=== PATIENT | female | born 1955 | race Hispanic/Latino ===

== ENCOUNTER → 2017-09-06 | Day surgery (SDC) | payer BC ==
[2017-09-05 10:43] VITALS: BMI 47.0
[~2017-09-06] MED LIST: Propofol 200 MG/20 ML VIAL ONE
--- NOTE | 2017-09-06 12:42 | OP ---
PREPROCEDURE DIAGNOSES: 1. Iron deficiency anemia. 2. Hepatomegaly with no signs of cirrhosis or abnormal liver enzymes on testing. 3. Diabetes, poorly controlled. POSTPROCEDURE DIAGNOSES: 1. 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 Biopsies obtained. 2. Normal stomach and duodenum, otherwise. 3. Normal colonoscopy except for a few diverticula. RECOMMENDATIONS: 1. Iron supplementation daily. 2. Follow up in office in 3 weeks. ANESTHESIA: TIVA. PROCEDURE IN DETAIL: After the patient was informed of the risks, benefits, possible complications of endoscopy including perforation, bleeding, reactions to medication and aspiration, informed conse nt was obtained. The patient brought to endoscopy suite where she was sedated in gradual fashion. Once he was comfortable, a bite block was placed in incisural orifice. The endoscope was advanced t hrough the esophagus, stomach and second and third portion of duodenum and slowly removed. There wa s good visualization of mucosa. There were no masses, lesions or arteriovenous malformations identi fied. There was an irregular squamocolumnar junction biopsy taken for short segment Billy's. The re were no ulcers or lesions to explain patient's anemia. Retroflexed views in the stomach were nor mal. The stomach was normal distensibility. The scope was removed. The patient was turned in the room. A rectal exam was performed which was normal. The endoscope was advanced through anal canal through the colon to cecum was identified by ileocecal valve and appendiceal orifice. Colon was blanca ewhat redundant. The prep was good. There were a few diverticula scattered around no polyps, mass lesions or AVMs were seen. Retroflexed views showed small internal hemorrhoids. Again, no sites of bleeding or causes of iron deficiency anemia found. The scope was removed. The patient tolerated the procedure well with no complications.
== END ==
LOC: SDC 06:52
PROVIDERS: ATTEND Internal Medicine Gastroenterology
PROC: 0DJD8ZZ Inspection of Lower Intestinal Tract, Via Natural or Artificial Opening Endoscopic (ICD-10-PCS; principal; 2017-09-06)
PROC: 0DB58ZX Excision of Esophagus, Via Natural or Artificial Opening Endoscopic, Diagnostic (ICD-10-PCS; principal; 2017-09-06)
DX: Z12.11 Encounter for screening for malignant neoplasm of colon (principal); K57.30 Diverticulosis of large intestine without perforation or abscess without bleeding; K22.70 Barrett's esophagus without dysplasia; R16.0 Hepatomegaly, not elsewhere classified; E11.65 Type 2 diabetes mellitus with hyperglycemia; K64.8 Other hemorrhoids; K21.9 Gastro-esophageal reflux disease without esophagitis; E78.00 Pure hypercholesterolemia, unspecified; I10 Essential (primary) hypertension; G47.30 Sleep apnea, unspecified; F32.9 Major depressive disorder, single episode, unspecified; E89.0 Postprocedural hypothyroidism; E11.9 Type 2 diabetes mellitus without complications; Z79.4 Long term (current) use of insulin; Z79.82 Long term (current) use of aspirin; Z79.899 Other long term (current) drug therapy; Z98.51 Tubal ligation status; Z90.710 Acquired absence of both cervix and uterus; Z98.890 Other specified postprocedural states; Z85.850 Personal history of malignant neoplasm of thyroid
CPT/HCPCS: 36416; 88305; 88312; 88313; 93005; 93010; J2704

== ENCOUNTER 2018-09-03 15:10 | Outpatient (CLI) | payer BC | END 2018-09-03 15:11 | disposition home or self-care (01) | LOC: BICMAMMO 15:10 | PROVIDERS: ATTEND Advanced Practice Midwife | DX: Z12.31 Encounter for screening mammogram for malignant neoplasm of breast (principal); R92.1 Mammographic calcification found on diagnostic imaging of breast; Z85.850 Personal history of malignant neoplasm of thyroid | CPT/HCPCS: 77063; 77067 ==

== ENCOUNTER 2018-10-31 10:57 | Outpatient (CLI) | payer BC ==
--- NOTE | 2018-10-31 13:17 | RAD ---
CHEST TWO VIEWS: 10/31/2018 COMPARISON: 10/09/2012 FINDINGS: Two views of the chest demonstrate some mild pulmonary vascular congestion. No evidence of effusions , pneumonia, or pneumothorax is seen. IMPRESSION: Mild pulmonary vascular congestion. Otherwise, unremarkable two views chest. POS: C
== END 2018-10-31 10:58 | disposition home or self-care (01) ==
LOC: BICRAD 10:57
PROVIDERS: ATTEND Family Medicine
DX: R07.9 Chest pain, unspecified (principal); R10.9 Unspecified abdominal pain; R09.89 Other specified symptoms and signs involving the circulatory and respiratory systems
CPT/HCPCS: 36415; 71046; 80053; 80061; 81001; 83036; 85025

== ENCOUNTER 2019-02-12 12:08 | Day surgery (SDC) | payer BC ==
[2019-02-11 16:50] VITALS: BMI 47.0
[~2019-02-12 12:08] MED LIST changes: +Bupivacaine 0.75% 10 ML AMP ONE; +CEFAZOLIN 1 GM VIAL ONE; +EPINEPHrine 0.3 MG, Dextrose 50% 3 ML in Ophthalmic Irrigation Solution 500 ML FS SCH; +Fentanyl 100 MCG/2 ML VIAL ONE; +Lidocaine 1% PF 5 ML VIAL ONE; +Lidocaine 4% PF 5 ML AMP ONE; +Maxitrol 0.1% Opth Oint 3.5 GM TUBE ONE; +Midazolam HCl 2 mg/2 ml Vial ONE; +PROPOFOL 200 MG/20 ML VIAL ONE; -Propofol 200 MG/20 ML VIAL ONE; +Triamcinolone 40 MG/ML VIAL ONE
[2019-02-12] MEDS ORDERED: Cyclopentolate 1% Opth Drop 2 ML BOT ONE (12:42)
[2019-02-12] MEDS ORDERED: Phenylephrine 2.5% Ophth Soln 5 ML BOT ONE (12:42)
--- NOTE | 2019-02-12 19:16 | OP ---
DATE OF PROCEDURE: 02/12/2019 PREOPERATIVE DIAGNOSES: Epiretinal membrane, vitreous hemorrhage, right eye. POSTOPERATIVE DIAGNOSES: Epiretinal membrane, vitreous hemorrhage, right eye. PROCEDURES PERFORMED: Pars plana vitrectomy, membrane peel, and panretinal photocoagulation, right eye. ANESTHESIA: Local with monitored anesthesia care. DESCRIPTION OF PROCEDURE: The patient was identified in the preoperative holding area. Appropriate informed consent for the planned surgical procedure on the right eye had been obtained. The patient was transported to the operative suite, where appropriate cardiopulmonary monitoring established. Local anesthesia obtained using retrobulbar modified Van Lint lid block using 50:50 mixture of 4% lidocaine and 0.75% bupivacaine. The patient was prepped and draped in usual sterile manner for ophthalmic surgery on the on the right eye. A lid speculum was placed in the right eye. A 25-gauge trocar was placed through the conjunctivae and sclera superotemporally, inferotemporally, and superonasally. Infusion line was placed inferotemporally. Light pipe vitreous cutter inserted into the eye. Core vitrectomy was performed. The vitreous was peeled from the retinal surface 360 degrees. Tractional membranes were peeled from the retina and and peeled successfully without development of holes or tears. Panretinal photocoagulation was placed areas of the retina. No further hemorrhaging was noted. Trocars removed and eye was noted to retain pressure well. Retrobulbar Kenalog and subconjunctival Ancef were placed. Antibiotic ointment was placed and the eye was patched and shielded. The patient was taken to the postoperative recovery unit in good condition, having suffered no immediate perioperative complications. The patient was instructed to keep patch and shield on, avoid lifting or bending. Followup appointment with Dr. Cardozo. Job ID: [id number]
== END 2019-02-12 15:05 | disposition home or self-care (01) ==
LOC: SDC 12:08
PROVIDERS: ATTEND Ophthalmology Retina Specialist
DX: H43.11 Vitreous hemorrhage, right eye (principal); H35.371 Puckering of macula, right eye; Z79.82 Long term (current) use of aspirin; Z79.84 Long term (current) use of oral hypoglycemic drugs; Z79.899 Other long term (current) drug therapy
CPT/HCPCS: 36416; J0171; J2250; J3010

== ENCOUNTER 2019-06-18 08:22 | Day surgery (SDC) | payer MEDICARE, BC ==
[2019-06-17 08:55] VITALS: BMI 48.1
--- NOTE | 2019-06-18 17:17 | OP ---
DATE OF PROCEDURE: 06/18/2019 PREPROCEDURE DIAGNOSIS: History of Billy esophagus. 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 No evidence of nodules, ulcers or lesions. Random biopsies obtained. RECOMMENDATIONS: 1. Continue PPI therapy. As she has some breakthrough, I have told her that she can go to b.i.d. Protonix. I have recommended weight loss. 2. Repeat EGD in 3 years depending on pathology. ANESTHESIA: TIVA. PROCEDURE IN DETAIL: The patient was informed of the risks, benefits, and possible complications of endoscopy including perforation, reaction to medication, and aspiration. Informed consent was obtained. The patient was brought to endoscopy suite, where a bite block was placed inside her orifice. The esophagus, stomach, and second and third portions of the duodenum were fully evaluated. The duodenum was normal. The stomach was notable for some mild gastritis. It was biopsied in the past, so it was not re-biopsied. There was no evidence of erosions or bleeding. Retroflexed views were normal with no significant masses. The GE junction was notable for some scattered islands of salmon pink mucosa consistent with Billy esophagus at the GE junction. There were no nodules, ulcers, or masses. Evaluation with HIDA scan showed no severely abnormal mucosa. Multiple random biopsies were taken from the GE junction and submitted to Pathology. The scope was removed. The patient tolerated the procedure well. There were no complications. Job ID: [id number]
== END 2019-06-18 11:48 | disposition home or self-care (01) ==
LOC: SDC 08:22
PROVIDERS: ATTEND Internal Medicine Gastroenterology
PROC: 0DB58ZX Excision of Esophagus, Via Natural or Artificial Opening Endoscopic, Diagnostic (ICD-10-PCS; principal; 2019-06-18)
DX: K22.70 Barrett's esophagus without dysplasia (principal); K29.70 Gastritis, unspecified, without bleeding
CPT/HCPCS: 36416; 88305; 88312; 88313

== ENCOUNTER 2020-05-25 22:14 | Inpatient (IN) | payer MEDICARE, BC, OTHER ==
[2020-05-25] MEDS ORDERED: Acetaminophen 500 MG TAB ONE (23:16)
[2020-05-26 01:34] VITALS: BMI 50.1
[2020-05-26] MEDS ORDERED: Ondansetron ODT 4 MG TAB SL PRN (01:49)
[2020-05-26] MEDS ORDERED: Acetaminophen 325 MG TAB PO PRN (01:49)
[2020-05-26] MEDS ORDERED: Ondansetron PF 4 MG/2 ML Vial IVP PRN (01:49)
[2020-05-26] MEDS: Sodium Chloride 0.9% 1,000 ML IV SCH ×5 (02:10→18:14)
--- NOTE | 2020-05-26 02:54 | PDOC.HHP ---
Hospitalist HPI - History of Present Illness diarrhea abdominal pain History of Present Illness: Case of an 64y/o female with pmhx of htn dm hypercholesterolemia and thyroid CA s/p thyroidectomy on thyroxine who comes to hospital transfer from [facility] due to sepsis. patient refers she was on her usual state of health until until 2 -3 days ago when she started with diarrhea abdominal pain chills nausea and vomiting. she states her symptoms continued to get worse for which she seek medical assistance. At the ED she was diagnosed with sepsis of unknow origin and transfer to this institution for further evaluation and management. associated with the aboves symptoms pt also complained of some sob. patient with recent exposure to covid from a family member, tested at [facility] and here both negative for covid. patient describes diarrhea as very liquid non bloody no melena 3-5 episodes a day with associated vomiting. patient refers she beleives symptoms started after eating some grapes which is out of the ordinary for her Hospitalist ROS - Review of Systems All other systems reviewed; all pertinent +/- noted in HPI/Subj - Medication Medications: Active Medications Generic Name Dose Route Start Last Admin Trade Name Freq PRN Reason Stop Dose Admin Sodium Chloride 1,000 mls @ 125 mls/hr 05/26/20 01:49 05/26/20 02:10 Normal Saline 0.9% IV 05/26/20 11:16 1,000 mls .Q8H EKLVIN Administration Sodium Chloride 10 ml 05/26/20 01:49 05/26/20 02:10 Flush - Normal Saline IVF 05/26/20 11:16 10 ml PRN PRN Administration Saline Flush Hospitalist History - Past Medical History Source: patient Cardiac: reports: HTN, Hyperlipidemia Endocrine: reports: Diabetes, Hypothyroidism - Past Surgical History Past Surgical History: reports: , Hysterectomy, Tubal Ligation Other Surgical History: thyroidectomy - Family History Family History: reports: diabetes mellitus, hypertension - Social History Smoking Status: Never smoker Alcohol: reports: None Drugs: reports: none Living Situation: With Family Activity level: independent ambulation - Exam General Appearance: NAD, awake alert Eye: PERRL, anicteric sclera ENT: normocephalic atraumatic, no oropharyngeal lesions, moist mucosa Neck: supple, symmetric, no JVD, no thyromegaly Heart: RRR, no murmur, no gallops, no rubs Respiratory: CTAB, no wheezes, no rales Gastrointestinal: soft, non-distended, normal bowel sounds, tender to palpation Extremities: no cyanosis, no clubbing, no edema Skin: normal turgor, no lesions Neurological: cranial nerve grossly intact, normal sensation to touch Musculoskeletal: normal tone, normal strength, no muscle wasting Psychiatric: normal affect, normal behavior, A&O x 3 Hospitalist Results - Radiology Interpretation CT scan - abdomen Status: report reviewed by me Additional Comment: 1. thickening of distal esophagus and stomach suggestive of gastritis 2. prominence of distal transverse and descending colon suggestives of inflammation vs colitis vs obstruction 3.noduler density in LLL 8.5mm f/u chest ct 6-12months Hospitalist H&P A/P - Problem (1) Sepsis Code(s): A41.9 - SEPSIS, UNSPECIFIED ORGANISM Status: Acute (2) Colitis Code(s): K52.9 - NONINFECTIVE GASTROENTERITIS AND COLITIS, UNSPECIFIED Status : Acute (3) Diabetes Code(s): E11.9 - TYPE 2 DIABETES MELLITUS WITHOUT COMPLICATIONS Status: Acute (4) HTN (hypertension) Code(s): I10 - ESSENTIAL (PRIMARY) HYPERTENSION Status: Acute (5) Hx of thyroid cancer Code(s): Z85.850 - PERSONAL HISTORY OF MALIGNANT NEOPLASM OF THYROID Status: Acute (6) Hypercholesterolemia Code(s): E78.00 - PURE HYPERCHOLESTEROLEMIA, UNSPECIFIED Status: Acute (7) Nausea & vomiting Code(s): R11.2 - NAUSEA WITH VOMITING, UNSPECIFIED Status: Acute - Plan Plan: Case of an 64y/o female w the stated pmhx who present with sepsis likely secondary to colitis sepsis / colitis - wbc in 17k with LA of 2.[address] suggestive of colitis - sepsis bundles started on [facility], dose of vanc and zosyn given - covid negative x 2, clean u/a, no suggestion of lung infection in chest ct - f/u blood and stool cutures - will order a f/u LA and treat accordingly - continue w ivfs - will start cippro and flagyl - npo except for meds - dvt prophylaxis gastritis - ppis bid nause / vomiting - symptomatic treatment prn diabetes - pt has insulin pump htn - holding medication in seeting of sepsis hx of thyroid cancer - continue thyroxine hypercholesterolmiea -continue statin
[2020-05-26] MEDS ORDERED: Sodium Chloride 0.9% 2,000 ML IV SCH (03:30)
[2020-05-26] MEDS: metroNIDAZOLE 500 MG in Premix Bag 1 BAG IVPB SCH ×3 (04:44→19:58)
[2020-05-26 05:00] LABS: ALT (SGPT) 13 U/L (8-55); AST (SGOT) 17 U/L (5-34); Alkaline Phosphatase 59 U/L (40-110); Anion Gap 13 mmol/L (10-20); BUN (Urea Nitrogen) 22 mg/dL (9.8-20.1); Bilirubin, Total 0.3 mg/dL (0.2-1.2); Calc. Creatinine Clearance 76 mL/min (70-130); Calcium 7.8 mg/dL (7.8-10.44); Carbon Dioxide 21 mmol/L (23-31); Chloride 104 mmol/L (98-107); Estimated GFR-MDRD 36; Glucose 126 mg/dL (80-115); Potassium 4.2 mmol/L (3.5-5.1); Sodium 134 mmol/L (136-145)
[2020-05-26 05:06] LABS: Band 31 % (5-11); Eosinophils 1 % (0-10); Hemoglobin 11.2 g/dL (12.0-16.0); Lymphocytes 3 % (21-51); MDiff Complete? YES; Mean Corpuscular HGB CONC 31.9 g/dL (32.0-36.0); Mean Corpuscular Hemoglobin 24.6 pg (27.0-31.0); Mean Corpuscular Volume 77.1 fL (78.0-98.0); Mean Platelet Volume 9.1 fL (7.4-10.4); Monocytes 5 % (0-10); Neutrophil 60 % (42-75); Platelet Count 184 thou/uL (130-400); Platelet Morphology Comment Appears Adequate; RBC Distribution Width 16.1 % (11.5-14.5); Red Blood Cell (RBC) Count 4.53 mill/uL (4.20-5.40); White Blood Cell (WBC) Count 21.3 thou/uL (4.8-10.8)
[2020-05-26] MEDS: Enoxaparin Sodium 40 MG/0.4 ML SYRINGE SC SCH (08:32)
[2020-05-26] MEDS: Aspirin Chewable 81 MG TAB PO SCH (08:32)
[2020-05-26] MEDS: Levothyroxine Sodium 100 MCG TAB PO SCH (08:32)
[2020-05-26] MEDS ORDERED: Rosuvastatin 10 MG TAB PO SCH (09:00)
[2020-05-26] MEDS ORDERED: Carvedilol 6.25 MG TAB PO SCH ×2 (09:00→22:45)
[2020-05-26] MEDS: Pregabalin 25 MG CAP PO SCH ×2 (13:11→19:52)
[2020-05-26] MEDS: Acetaminophen 325 MG TAB PO PRN (15:13)
[2020-05-26] MEDS ORDERED: Loperamide HCl 2 MG CAP PO SCH (19:15)
[2020-05-26] MEDS: Rosuvastatin 5 MG TAB PO SCH (22:49)
[2020-05-27] MEDS: Loperamide HCl 2 MG CAP PO PRN ×4 (00:06→20:53)
[2020-05-27] MEDS: metroNIDAZOLE 500 MG in Premix Bag 1 BAG IVPB SCH ×2 (04:49→11:34)
[2020-05-27 06:01] LABS: Anion Gap 12 mmol/L (10-20); BUN (Urea Nitrogen) 23 mg/dL (9.8-20.1); Calc. Creatinine Clearance 80 mL/min (70-130); Carbon Dioxide 23 mmol/L (23-31); Chloride 105 mmol/L (98-107); Estimated GFR-MDRD 38; Glucose 107 mg/dL (80-115); Potassium 4.4 mmol/L (3.5-5.1); Sodium 136 mmol/L (136-145)
[2020-05-27 06:57] LABS: Band 24 % (5-11); Hemoglobin 10.8 g/dL (12.0-16.0); Lymphocytes 8 % (21-51); MDiff Complete? YES; Mean Corpuscular HGB CONC 31.5 g/dL (32.0-36.0); Mean Corpuscular Hemoglobin 24.4 pg (27.0-31.0); Mean Corpuscular Volume 77.5 fL (78.0-98.0); Mean Platelet Volume 9.8 fL (7.4-10.4); Monocytes 2 % (0-10); Neutrophil 66 % (42-75); Platelet Count 183 thou/uL (130-400); RBC Distribution Width 16.4 % (11.5-14.5); Red Blood Cell (RBC) Count 4.43 mill/uL (4.20-5.40)
[2020-05-27] MEDS: Levothyroxine Sodium 100 MCG TAB PO SCH (08:40)
[2020-05-27] MEDS: Aspirin Chewable 81 MG TAB PO SCH (08:40)
[2020-05-27] MEDS: Sodium Chloride 0.9% 1,000 ML IV SCH (08:41)
[2020-05-27] MEDS: Carvedilol 6.25 MG TAB PO SCH ×2 (08:41→17:33)
[2020-05-27] MEDS: Enoxaparin Sodium 40 MG/0.4 ML SYRINGE SC SCH (08:41)
[2020-05-27] MEDS: Acetaminophen 325 MG TAB PO PRN ×2 (08:55→20:53)
--- NOTE | 2020-05-27 16:04 | PDOC.HOSPP ---
- Subjective Encounter Date: 05/27/20 Encounter Time: 10:30 Subjective: Pt seen for followup re: sepsis. Feels slightly better. Continues to have diarrhea. - Objective Vital Signs & Weight: Vital Signs (12 hours) Temp Pulse Resp BP BP Pulse Ox 05/27/20 08:41 159/77 H 05/27/20 08:00 95 05/27/20 07:36 98.5 F 81 20 159/77 H 95 05/27/20 04:26 98.5 F 79 17 139/72 99 Weight Weight 273 lb 11.2 oz I&O: 05/26/20 05/27/20 05/28/20 06:59 06:59 06:59 Intake Total 2300 1680 Balance 2300 1680 Result Diagrams: 05/27/20 05:23 05/27/20 05:23 Additional Labs: Accuchecks 05/27/20 05/27/20 05/27/20 11:39 04:29 00:03 POC Glucose 85 124 H 200 H 05/26/20 05/26/20 05/26/20 22:42 20:07 16:20 POC Glucose 60 L 158 H 249 H Labs and MARs reviewed by ny Hospitalist ROS - Review of Systems Cardiovascular: denies: chest pain, palpitations, orthopnea, paroxysmal noc. dyspnea, edema, light headedness Gastrointestinal: reports: diarrhea. denies: nausea, vomiting, abdominal pain, constipation, melena, hematochezia Genitourinary: denies: dysuria, frequency, incontinence, hematuria, retention - Medication Medications: Active Medications Generic Name Dose Route Start Last Admin Trade Name Freq PRN Reason Stop Dose Admin Acetaminophen 650 mg 05/26/20 14:33 05/27/20 08:55 Tylenol PO 650 mg Q6H PRN Administration Headache/Fever or Pain Aspirin 81 mg 05/26/20 09:00 05/27/20 08:40 Aspirin Chewable PO 81 mg QAM KELVIN Administration Carvedilol 12.5 mg 05/27/20 08:00 05/27/20 08:41 Coreg PO 12.5 mg BID-WM KELVIN Administration Enoxaparin Sodium 40 mg 05/26/20 09:00 05/27/20 08:41 Lovenox SC 40 mg 0900 KELVIN Administration Ciprofloxacin/Dextrose 400 mg/ 200 mls @ 200 mls/hr 05/26/20 09:00 05/27/20 08:39 Device IVPB 200 mls Q12HR KELVIN Administration Metronidazole 500 mg/ Device 100 mls @ 100 mls/hr 05/26/20 04:00 05/27/20 11: 34 IVPB 100 mls 0400,1200,2000 KELVIN Administration Sodium Chloride 1,000 mls @ 100 mls/hr 05/26/20 02:45 05/27/20 08:41 Normal Saline 0.9% IV 1,000 mls .Q10H KELVIN Administration Levothyroxine Sodium 300 mcg 05/26/20 09:00 05/27/20 08:40 Synthroid PO 300 mcg QAM KELVIN Administration Loperamide HCl 2 mg 05/26/20 19:04 05/27/20 08:40 Imodium PO 2 mg PRN PRN Administration Diarrhea/Loose Stools Pantoprazole Sodium 40 mg 05/26/20 09:00 05/27/20 08:40 Protonix PO 40 mg DAILY KELVIN Administration Rosuvastatin Calcium 5 mg 05/26/20 21:00 05/26/20 22:49 Crestor PO Not Given HS KELVIN Sertraline HCl 250 mg 05/26/20 21:00 05/26/20 22:50 Zoloft PO 250 mg HS KELVIN Administration - Exam General - other findings: Morbid obesity Eye: anicteric sclera ENT: moist mucosa Neck: supple, no thyromegaly Heart: RRR, no rubs Respiratory: CTAB Gastrointestinal: soft, non-tender, normal bowel sounds Extremities: no cyanosis Psychiatric: normal affect, normal behavior Hosp A/P - Plan - Assessment (1) Sepsis Code(s): A41.9 - SEPSIS, UNSPECIFIED ORGANISM Status: Acute (2) Colitis Code(s): K52.9 - NONINFECTIVE GASTROENTERITIS AND COLITIS, UNSPECIFIED Status : Acute (3) HTN (hypertension) Code(s): I10 - ESSENTIAL (PRIMARY) HYPERTENSION Status: Acute (3) Diabetes Code(s): E11.9 - TYPE 2 DIABETES MELLITUS WITHOUT COMPLICATIONS Status: Acute (4) Hypercholesterolemia Code(s): E78.00 - PURE HYPERCHOLESTEROLEMIA, UNSPECIFIED Status: Acute (5) Hx of thyroid cancer Code(s): Z85.850 - PERSONAL HISTORY OF MALIGNANT NEOPLASM OF THYROID Status: Acute (6) Morbid obesity Status: Chronic (7) Nausea & vomiting Code(s): R11.2 - NAUSEA WITH VOMITING, UNSPECIFIED Status: Resolved - Plan sepsis / colitis: - WBC improving, bandemia still present - Stool C. diff, shiga negative - continue IV fluids - continue cippro and flagyl - clear fluid diet, advance as tolerated DM2: - pt has insulin pump -continue accuchecks and insulin slidign scale htn: -resume losartan hx of thyroid cancer: - TSH high, check free T4 hypercholesterolimea -pt is on statin CKD Stage 3: -follow GFR (resuming losartan)
[2020-05-27] MEDS ORDERED: Labetalol HCl 100 MG/20 ML VIAL SLOW IVP PRN (19:19)
[2020-05-27] MEDS ORDERED: Labetalol HCl 100 MG/20 ML VIAL SLOW IVP SCH (19:30)
--- NOTE | 2020-05-27 19:48 | CON ---
DATE OF CONSULTATION: 05/27/2020 REASON FOR CONSULTATION: Gastroenteritis. HISTORY OF PRESENT ILLNESS: Ms. Gonzalez states that she became ill on Saturday afternoon, after waking up in the morning not feeling great and began to have cramps and diarrhea. She had no bleeding. She had no nausea or vomiting. She had several loose stools and cramps and ultimately began to even feel worse and came to the emergency room. She was admitted early in the morning yesterday around 2:00. In the ER, she was diagnosed with "sepsis" and admitted to the hospital. She has had no melena, hematochezia, or hematemesis. She states she is actually feeling better today. Her is now ill with similar symptoms at home. They ate breakfast the morning she got sick, some eggs and spam and other vegetables. Apparently, the eggs were sitting in a baggie for about 3 days in her refrigerator before she cooked them. PAST MEDICAL HISTORY: 1. Billy esophagus. Last EGD by me on 06/18/2019, with no dysplasia. Last colonoscopy was in 08/2017, normal except for diverticulosis coli. 2. Poorly controlled diabetes. 3. History of fatty liver. 4. Hyperlipidemia, hypertension, sleep apnea, anxiety, prior history of thyroid cancer disease. PAST SURGICAL HISTORY: Cholecystectomy and reflux. , hysterectomy, tubal ligation. ALLERGIES: NONE KNOWN. REVIEW OF SYSTEMS: Negative for arthralgias, myalgias, chest pain, shortness of breath, or dyspnea on exertion. FAMILY HISTORY: Diabetes and hypertension. SOCIAL HISTORY: She does not smoke, drink, or use drugs. MEDICATIONS: At home; 1. Metformin. 2. Sertraline. 3. Crestor. 4. Losartan. 5. Synthroid. 6. Insulin. 7. Furosemide. 8. Nexium. 9. Jardiance. 10. Carvedilol. 11. Aspirin. Medications here; 1. Aspirin. 2. Carvedilol. 3. Cipro. 4. Lovenox. 5. Levothyroxine. 6. Loperamide. 7. Cozaar. 8. Flagyl. 9. Protonix. 10. Sertraline. 11. Normal saline 100. PHYSICAL EXAMINATION: VITAL SIGNS: Temperature is 98, T-max is 100.3, blood pressure 159/70. GENERAL: She is resting in bed. She is a little bit overweight. She is in no distress. HEENT: Oropharynx is moist. NECK: Supple. LUNGS: Clear. HEART: Regular rate and rhythm without clicks or murmurs. ABDOMEN: Soft, protuberant. There is significant pannus. It is nontender. There is no rebound. There is no guarding. EXTREMITIES: No clubbing, cyanosis, or edema. SKIN: Reveals no rashes or erythema. LABORATORY DATA: White count down from 21,000 yesterday to 13 today, MCV 77, hemoglobin 10.8, platelet count 183. INR is 1.2. Sodium 136, potassium 4.4. BUN and creatinine are 23 and 1.38, 22 and 1.45 on admission. Liver function tests were normal on admission. Microbiology; stool lactoferrin positive, Campylobacter negative, shiga toxin was negative, culture pending, clostridium difficile negative. Blood cultures, there was one culture with gram variable rods on the 1st. Negative urine culture. Negative blood cultures on the 2nd. Negative COVID test. There was a CAT scan from [facility], reportedly showed thickening of the distal esophagus and stomach, suggestive of gastritis, distal transverse, descending colitis. ASSESSMENT: Acute gastroenteritis. RECOMMENDATIONS: 1. Await final cultures. 2. Complete three or four days of antibiotics. If she continues to improve and she is able to remain hydrated and take p.o. and her cultures are negative, she can probably go home tomorrow. We will follow along with you. Job ID: [id number]
[2020-05-27] MEDS: Rosuvastatin 5 MG TAB PO SCH (22:28)
[2020-05-28] MEDS: Sodium Chloride 0.9% 1,000 ML IV SCH ×2 (02:23→05:47)
[2020-05-28] MEDS: metroNIDAZOLE 500 MG in Premix Bag 1 BAG IVPB SCH ×2 (02:25→05:47)
[2020-05-28 03:38] LABS: #Eosinphils 0.1 thou/uL (0.0-0.7); #Lymphocytes 1.5 thou/uL (1.20-3.40); #Monocytes 0.9 thou/uL (0.11-0.59); #Neutrophils 10.1 thou/uL (1.40-6.50); %Basophils 0.2 % (0.0-1.0); %Lymphocytes 12.1 % (21.0-51.0); %Monocytes 7.1 % (0.0-10.0); %Neutrophils 79.5 % (42.0-75.0); Hemoglobin 12.2 g/dL (12.0-16.0); Mean Corpuscular HGB CONC 31.6 g/dL (32.0-36.0); Mean Corpuscular Hemoglobin 24.6 pg (27.0-31.0); Mean Corpuscular Volume 77.7 fL (78.0-98.0); Mean Platelet Volume 8.8 fL (7.4-10.4); Platelet Count 175 thou/uL (130-400); RBC Distribution Width 16.2 % (11.5-14.5); Red Blood Cell (RBC) Count 4.95 mill/uL (4.20-5.40); White Blood Cell (WBC) Count 12.7 thou/uL (4.8-10.8)
[2020-05-28 03:47] LABS: Anion Gap 13 mmol/L (10-20); BUN (Urea Nitrogen) 15 mg/dL (9.8-20.1); Calc. Creatinine Clearance 102 mL/min (70-130); Calcium 8.6 mg/dL (7.8-10.44); Carbon Dioxide 19 mmol/L (23-31); Chloride 107 mmol/L (98-107); Estimated GFR-MDRD 51; Glucose 112 mg/dL (80-115); Potassium 4.1 mmol/L (3.5-5.1); Sodium 135 mmol/L (136-145)
[2020-05-28] MEDS ORDERED: Electrolyte Replacement Protoc 1 EACH EACH FS PRN (08:00)
[2020-05-28] MEDS: Levothyroxine Sodium 100 MCG TAB PO SCH (08:05)
[2020-05-28] MEDS: Carvedilol 6.25 MG TAB PO SCH (08:06)
[2020-05-28] MEDS: Aspirin Chewable 81 MG TAB PO SCH (08:06)
[2020-05-28] MEDS ORDERED: Losartan 25 MG TAB PO SCH ×2 (09:00)
[2020-05-28] MEDS ORDERED: Empagliflozin 25 MG TAB PO SCH (09:00)
[2020-05-28 12:35] VITALS: BP 144/68; TEMP 98.5
[2020-05-28] MEDS: Loperamide HCl 2 MG CAP PO PRN (14:22)
--- NOTE | 2020-05-28 17:33 | PRG ---
DATE OF SERVICE: 05/28/2020 SUBJECTIVE: Ms. Gonzalez was moved to telemetry last night as there was concern for some hypertension or atrial fibrillation. When she got here, she was in normal sinus rhythm. She has done fine. Her diarrhea has slowed markedly. She has no more lower abdominal pain. OBJECTIVE: VITAL SIGNS: Her blood pressure is 144/68, temperature is 98.5, pulse 77. ABDOMEN: Soft, nontender. LABORATORY DATA: White count 34557 down from 21,000 on admission, hemoglobin 12.7, MCV 77, platelet count 175, 79 segs, no bands on today's differential. Sodium 135, potassium 4, BUN and creatinine are 15 and 1.08 down from 23 and 1.45. Stool ultimately showed white blood cells, but cultures and stool antigens were nondiagnostic. ASSESSMENT: Acute diarrheal illness, likely either a viral or bacterial gastroenteritis. Doing much better now. I agree with plans for discharge. I think she has had 3 days of antibiotics, needs no further antibiotics. I have recommended a low residue modified BRAT diet with grilled chicken advance as tolerated. If she has any problems, we would be happy to see her back in the office. Otherwise, she will follow up on an as-needed basis. Job ID: [id number]
--- NOTE | 2020-05-29 02:32 | DIS ---
DATE OF ADMISSION: 05/25/2020 DATE OF DISCHARGE: 05/28/2020 HOSPITAL COURSE: Ms. Gonzalez is a 64-year-old female with medical history of hypertension, type 2 diabetes, and thyroid cancer, status post thyroidectomy, on thyroxine, who came to the hospital for abdominal pain, nausea, vomiting, and diarrhea for 3 days. She was diagnosed with acute gastroenteritis. Her symptoms resolved after supportive treatment and on the day of discharge, she was hemodynamically stable with no additional episodes of diarrhea, nausea, or vomiting. In addition to that, the patient was noted to be on a very high dose of levothyroxine 300 mcg, which is greater than her recommended dosage based on her weight. It is unknown if the patient takes the levothyroxine as she should early in the morning before taking anything else. The patient was educated regarding levothyroxine dosage and to follow up with her primary care physician after properly taking the levothyroxine. PHYSICAL EXAMINATION: VITAL SIGNS: Blood pressure 144/68, temperature 98.5, pulse 77, respiratory rate 18, and oxygen saturation 96% on room air. GENERAL: Lying comfortably in bed. Morbidly obese. ENT: Moist mucosa. HEART: Regular rate and rhythm. No rubs, murmurs. LUNGS: Clear to auscultation bilaterally. No wheezing, rales, or rhonchi. GI: Soft, nontender, and nondistended. Normal bowel sounds. EXTREMITIES: No cyanosis. PSYCHIATRIC: Proper mood and affect. Alert and oriented x3. MEDICATION LIST: New medications: No new medications. Modified medications: Lasix was changed from 20 mg daily to 20 mg p.r.n. edema. Old medications: 1. Aspirin. 2. Coreg. 3. Jardiance. 4. Levothyroxine 300 mcg daily. 5. Losartan. 6. Sertraline. 7. Aspirin. 8. Nexium. 9. Humalog 50/50 mix. 10. Metformin. 11. Rosuvastatin. Job ID: [id number]
--- NOTE | 2020-05-30 14:26 | EKG ---
Test Reason : STAT Blood Pressure : / mmHG Vent. Rate : 118 BPM Atrial Rate : 102 BPM P-R Int : 000 ms QRS Dur : 078 ms QT Int : 280 ms P-R-T Axes : 000 016 014 degrees QTc Int : 392 ms Atrial fibrillation with rapid ventricular response Low voltage QRS Abnormal ECG No previous ECGs available Confirmed by ZACK REYES (2) on 05/30/2020 2:26:21 PM Referred By: Krish Confirmed By:ZACK REYES
== END 2020-05-28 16:48 | disposition home or self-care (01) | DRG 872 ==
LOC: ERS 22:14 → T4-B 23:23 → 2NO 05-27 21:51
PROVIDERS: ADMIT Internal Medicine; ATTEND Internal Medicine
DX: A41.89 Other specified sepsis (principal); Z68.43 Body mass index [BMI] 50.0-59.9, adult; A08.8 Other specified intestinal infections; Z20.828 Contact with and (suspected) exposure to other viral communicable diseases; E66.01 Morbid (severe) obesity due to excess calories; E78.5 Hyperlipidemia, unspecified; E78.00 Pure hypercholesterolemia, unspecified; K29.70 Gastritis, unspecified, without bleeding; I12.9 Hypertensive chronic kidney disease with stage 1 through stage 4 chronic kidney disease, or unspecified chronic kidney disease; E11.22 Type 2 diabetes mellitus with diabetic chronic kidney disease; N18.3 Chronic kidney disease, stage 3 (moderate); F32.9 Major depressive disorder, single episode, unspecified; E11.65 Type 2 diabetes mellitus with hyperglycemia; G47.30 Sleep apnea, unspecified; K22.70 Barrett's esophagus without dysplasia; K76.0 Fatty (change of) liver, not elsewhere classified; Z90.49 Acquired absence of other specified parts of digestive tract; Z98.51 Tubal ligation status; Z90.710 Acquired absence of both cervix and uterus; Z79.890 Hormone replacement therapy; Z79.84 Long term (current) use of oral hypoglycemic drugs; Z79.899 Other long term (current) drug therapy; Z85.850 Personal history of malignant neoplasm of thyroid
CPT/HCPCS: 36415; 36416; 80048; 80053; 83605; 83630; 84145; 84439; 84443; 85007; 85025; 85027; 87040; 87045; 87046; 87077; 87186; 87324; 87427; 87449; 93005; 93010; 99285; J0744; J1650; U0002

== ENCOUNTER 2020-11-10 11:17 | Outpatient (CLI) | payer MEDICARE, BC ==
--- NOTE | 2020-11-10 13:04 | MMO ---
Bilateral MAMMO Bilat Screen [facility]. CLINICAL HISTORY: Patient is 65 years old and is seen for screening. The patient has no family history of breast cancer. The patient has no personal history of cancer. VIEWS: The views performed were: bilateral craniocaudal with tomosynthesis and bilateral mediolateral oblique with tomosynthesis. FILMS COMPARED: The present examination has been compared to prior imaging studies performed at [facility] on 06/01/2013, 02/22/2016 and 09/03/2018, and at [facility] on 03/27/2010. This study has been interpreted with the assistance of computer-aided detection. MAMMOGRAM FINDINGS: There are scattered fibroglandular densities. There are stable benign appearing calcifications seen in both breasts. There are also vascular calcifications. There are no suspicious masses, suspicious calcifications, or new areas of architectural distortion. IMPRESSION: THERE IS NO MAMMOGRAPHIC EVIDENCE OF MALIGNANCY. A ROUTINE FOLLOW-UP MAMMOGRAM IN 1 YEAR IS RECOMMENDED. THE RESULTS OF THIS EXAM WERE SENT TO THE PATIENT. ACR BI-RADS Category 2 - Benign finding MAMMOGRAPHY NOTE: 1. A negative mammogram report should not delay a biopsy if a dominant of clinically suspicious mass is present. 2. Approximately 10% to 15% of breast cancers are not detected by mammography. 3. Adenosis and dense breasts may obscure an underlying neoplasm. Reported by: MELANIE MCCALLUM MD Electonically Signed: [id number]
== END 2020-11-10 11:18 | disposition home or self-care (01) ==
LOC: BICMAMMO 11:17
PROVIDERS: ATTEND Family Medicine
DX: Z12.31 Encounter for screening mammogram for malignant neoplasm of breast (principal)
CPT/HCPCS: 77063; 77067

== ENCOUNTER 2024-05-20 12:18 | Emergency (ER) | payer BC, MEDICARE, OTHER ==
[2024-05-20] MEDS ORDERED: Acetaminophen 500 MG TAB ONE (13:15)
[2024-05-20] MEDS ORDERED: Ibuprofen 200 MG TAB ONE (13:15)
[2024-05-20 14:37] LABS: Influenza A by NAA Not Detected (NotDetected); Influenza B by NAA Not Detected (NotDetected); SARS-CoV-2 NAA Rapid Test DETECTED (NotDetected)
== END 2024-05-20 15:07 | disposition home or self-care (01) ==
LOC: ERS 12:18
DX: U07.1 COVID-19 (principal); E11.9 Type 2 diabetes mellitus without complications; I10 Essential (primary) hypertension; Z79.84 Long term (current) use of oral hypoglycemic drugs; Z79.82 Long term (current) use of aspirin
CPT/HCPCS: 0240U; 71046; 99284

== ENCOUNTER 2024-10-16 18:08 | Inpatient (IN) | payer MEDICARE ==
[2024-10-16 19:00] LABS: #Basophils 0.04 10x3/uL (0.0-0.2); %Basophils 0.4 % (0.0-1.0); %Eosinophils 1.1 % (0.0-10.0); %Lymphocytes 22.9 % (21.0-51.0); %Monocytes 7.5 % (0.0-10.0); %Neutrophils 67.6 % (42.0-75.0); Hematocrit 32.8 % (36.0-47.0); Hemoglobin 10.5 g/dL (12.0-16.0); Mean Corpuscular Hemoglobin 22.9 pg (27.0-31.0); Mean Corpuscular Volume 71.6 fL (78.0-98.0); Mean Platelet Volume 9.5 fL (7.4-10.4); Platelet Count 215 10x3/uL (130-400); Red Blood Cell (RBC) Count 4.58 mill/uL (4.20-5.40)
[2024-10-16] MEDS ORDERED: Metoprolol Tartrate 5 MG (5 mL) VIAL ONE (19:04)
[2024-10-16 19:32] LABS: Troponin I 0.092 ng/mL (< 0.028)
[2024-10-16 19:36] LABS: Anisocytosis MODERATE=16-30 cells HPF (0-5); Microcytosis SLIGHT = 6-15 cells HPF (0-5); Ovalocytes SLIGHT = 2-5 cells HPF (0-1); Platelet Adequacy Comment Platelets Normal; Polychromasia SLIGHT = 2-3 cells HPF (0-2); Schistocytes SLIGHT = 2-5 cells HPF (0-1); Target Cells SLIGHT = 2-5 cells HPF (0-1)
[2024-10-16] MEDS ORDERED: Digoxin 0.5 MG/2 ML AMP ONE (19:56)
[2024-10-16 20:24] LABS: INR-International Normal Ratio 0.9; Prothrombin Time 12.5 sec (12.0-14.7)
[2024-10-16 20:28] LABS: ALT (SGPT) 18 U/L (8-55); AST (SGOT) 27 U/L (5-34); Albumin 3.5 g/dL (3.4-4.8); Alkaline Phosphatase 69 U/L (40-110); Anion Gap 16 mmol/L (10-20); BUN (Urea Nitrogen) 38 mg/dL (9.8-20.1); Bilirubin, Total 0.2 mg/dL (0.2-1.2); Calc. Creatinine Clearance 0 mL/min (70-130); Calcium 8.7 mg/dL (7.8-10.44); Carbon Dioxide 22 mmol/L (23-31); Chloride 101 mmol/L (98-107); Estimated GFR 37; Globulin 3.8 g/dL (2.4-3.5); Glucose 116 mg/dL (80-115); Lipase 50 U/L (8-78); Magnesium 1.6 mg/dL (1.6-2.6); Potassium 4.3 mmol/L (3.5-5.1); Protein, Total 7.3 g/dL (5.8-8.1); Sodium 135 mmol/L (136-145)
[2024-10-16] MEDS ORDERED: Diltiazem HCl/D5W 125 ML ONE (21:04)
[2024-10-16] MEDS ORDERED: Ondansetron PF 4 MG/2 ML Vial IVP PRN (21:36)
[2024-10-16] MEDS ORDERED: Ondansetron ODT 4 MG TAB PO PRN (21:36)
[2024-10-16] MEDS ORDERED: traMADol HCl 50 MG TAB PO PRN (21:36)
[2024-10-16] MEDS ORDERED: Dextrose 5% in Water 1,000 ML IV PRN (21:45)
[2024-10-16] MEDS ORDERED: Insulin Lispro 100 UNIT/ML 10 ML VIAL SC PRN ×2 (21:45)
[2024-10-16] MEDS ORDERED: Glucagon 1 MG/ML KIT IM PRN (21:45)
[2024-10-16] MEDS ORDERED: Dextrose 50% Abboject 50 ML SYRINGE SLOW IVP PRN (21:45)
[2024-10-16] MEDS ORDERED: Diltiazem HCl/D5W 125 MG in Premix 1 BAG IVPB SCH (21:45)
[2024-10-16 22:29] LABS: Free T4 (Free Thyroxine) 1.46 ng/dL (0.70-1.48)
[2024-10-16 22:53] LABS: Magnesium 1.6 mg/dL (1.6-2.6)
[2024-10-16 23:27] VITALS: BMI 43.4
[2024-10-16] MEDS: Acetaminophen 325 MG TAB PO PRN (23:35)
[2024-10-16 23:59] LABS: Troponin I 0.989 ng/mL (< 0.028)
[2024-10-17] MEDS: Heparin 25,000 units/D5W 500 ML IV SCH (01:14)
[2024-10-17 04:14] LABS: #Basophils 0.03 10x3/uL (0.0-0.2); %Basophils 0.3 % (0.0-1.0); %Eosinophils 1.1 % (0.0-10.0); %Lymphocytes 28.4 % (21.0-51.0); %Monocytes 7.7 % (0.0-10.0); %Neutrophils 62.2 % (42.0-75.0); Hematocrit 32.7 % (36.0-47.0); Hemoglobin 10.1 g/dL (12.0-16.0); Mean Corpuscular HGB CONC 30.9 g/dL (32.0-36.0); Mean Corpuscular Hemoglobin 22.9 pg (27.0-31.0); Mean Platelet Volume 9.6 fL (7.4-10.4); Platelet Count 199 10x3/uL (130-400); RBC Distribution Width 18.9 % (11.5-14.5); Red Blood Cell (RBC) Count 4.42 mill/uL (4.20-5.40)
[2024-10-17 04:22] LABS: ALT (SGPT) 17 U/L (8-55); AST (SGOT) 31 U/L (5-34); Albumin 3.2 g/dL (3.4-4.8); Alkaline Phosphatase 66 U/L (40-110); Anion Gap 14 mmol/L (10-20); BUN (Urea Nitrogen) 35 mg/dL (9.8-20.1); Bilirubin, Total 0.2 mg/dL (0.2-1.2); Calc. Creatinine Clearance 70 mL/min (70-130); Calcium 8.6 mg/dL (7.8-10.44); Carbon Dioxide 26 mmol/L (23-31); Chloride 101 mmol/L (98-107); Estimated GFR 45; Glucose 133 mg/dL (80-115); Potassium 4.2 mmol/L (3.5-5.1); Protein, Total 6.2 g/dL (5.8-8.1); Sodium 137 mmol/L (136-145)
[2024-10-17] MEDS: Levothyroxine Sodium 50 MCG TAB PO SCH (05:46)
[2024-10-17] MEDS: Levothyroxine Sodium 100 MCG TAB PO SCH (06:55)
[2024-10-17] MEDS: FLU (Fluad Triv) TS24-25 (65UP)/MF59C/PF 45 MCG/0.5 ML Syringe IM ONE (09:10)
[2024-10-17] MEDS: Heparin 10,000 UNITS/ 10 ML VIAL SLOW IVP SCH (09:12)
[2024-10-17] MEDS: Sertraline 100 MG TAB PO SCH (09:15)
[2024-10-17] MEDS: Pantoprazole DR 40 MG TAB PO SCH (09:15)
[2024-10-17 12:36] LABS: Critical Call Chem Troponin I DOWNt; Troponin I 1.727 ng/mL (< 0.028)
[2024-10-17] MEDS: Apixaban 5 MG TAB PO SCH (21:19)
[2024-10-18] MEDS: Losartan 25 MG TAB PO SCH (08:16)
[2024-10-18] MEDS: Furosemide 40 MG TAB PO SCH (08:16)
[2024-10-18] MEDS: Empagliflozin 10 MG TAB PO SCH (08:17)
[2024-10-18 11:58] VITALS: TEMP 97.4
[2024-10-18] MEDS: hydrALAZINE 25 MG TAB PO SCH (11:58)
[2024-10-18 14:30] VITALS: BP 180/79
[2024-10-18] MEDS ORDERED: hydrALAZINE 25 MG TAB PO SCH (15:00)
[2024-10-18] MEDS ORDERED: metFORMIN 500 MG TAB PO SCH (17:00)
== END 2024-10-18 13:08 | disposition home or self-care (01) | DRG 281 ==
LOC: ERS 18:08 → 2NO 21:40 → OBSVTOIN 10-17 15:50
PROVIDERS: ADMIT Internal Medicine; ATTEND Internal Medicine
DX: I48.19 Other persistent atrial fibrillation (principal); Z68.41 Body mass index [BMI] 40.0-44.9, adult; I21.A1 Myocardial infarction type 2; E11.9 Type 2 diabetes mellitus without complications; I10 Essential (primary) hypertension; F32.A Depression, unspecified; E66.9 Obesity, unspecified; K21.9 Gastro-esophageal reflux disease without esophagitis; Z88.1 Allergy status to other antibiotic agents; E03.9 Hypothyroidism, unspecified; E78.5 Hyperlipidemia, unspecified; Z98.51 Tubal ligation status; Z90.710 Acquired absence of both cervix and uterus; Z79.4 Long term (current) use of insulin; Z79.01 Long term (current) use of anticoagulants; Z79.84 Long term (current) use of oral hypoglycemic drugs; Z79.899 Other long term (current) drug therapy; I48.92 Unspecified atrial flutter
CPT/HCPCS: 36415; 36416; 71045; 71250; 80053; 83690; 83735; 83880; 84145; 84439; 84443; 84481; 84484; 85025; 85610; 85730; 93005; 93010; 93306; 93970; 94760; 96374; 96375; J1160; J1644

== ENCOUNTER 2025-04-02 14:04 | Inpatient (IN) | payer MEDICARE ==
[2025-04-02] MEDS ORDERED: Magnesium 2 GM/50 ML BAG (IN WATER) ONE (14:08)
[2025-04-02] MEDS ORDERED: dilTIAZem 25 MG/5 ML VIAL ONE ×2 (14:08→15:54)
[2025-04-02 21:13] LABS: ALT (SGPT) 10 U/L (Less than 34); AST (SGOT) 23 U/L (11-34); Albumin 3.1 g/dL (3.1-4.5); Alkaline Phosphatase 68 U/L (40-110); Anion Gap 18 mmol/L (10-20); BUN (Urea Nitrogen) 42 mg/dL (9.8-20.1); Bilirubin, Total 0.2 mg/dL (0.3-1.2); Calc. Creatinine Clearance 0 mL/min (70-130); Calcium 8.4 mg/dL (7.8-10.44); Carbon Dioxide 18 mmol/L (23-31); Chloride 105 mmol/L (98-107); Estimated GFR 32; Globulin 3.5 g/dL (2.4-3.5); Glucose 112 mg/dL (80-115); Magnesium 2.1 mg/dL (1.6-2.6); Potassium 4.1 mmol/L (3.5-5.1); Protein, Total 6.6 g/dL (5.8-8.1); Sodium 137 mmol/L (136-145)
[2025-04-02 21:58] LABS: #Basophils 0.04 10x3/uL (0.0-0.2); %Basophils 0.6 % (0.0-1.0); %Eosinophils 3.1 % (0.0-10.0); %Lymphocytes 25.6 % (21.0-51.0); %Monocytes 10.4 % (0.0-10.0); %Neutrophils 59.9 % (42.0-75.0); Hematocrit 31.3 % (36.0-47.0); Hemoglobin 9.8 g/dL (12.0-16.0); Mean Corpuscular HGB CONC 31.3 g/dL (32.0-36.0); Mean Corpuscular Hemoglobin 22.8 pg (27.0-31.0); Mean Platelet Volume 9.7 fL (7.4-10.4); Platelet Count 210 10x3/uL (130-400); RBC Distribution Width 16.9 % (11.5-14.5); Red Blood Cell (RBC) Count 4.29 mill/uL (4.20-5.40)
[2025-04-02 22:11] LABS: Troponin I Less than 0.010 ng/mL (< 0.028)
[2025-04-03] MEDS ORDERED: Ondansetron PF 4 MG/2 ML Vial SLOW IVP PRN (02:15)
[2025-04-03] MEDS ORDERED: Dextrose 5% in Water 1,000 ML IV PRN (02:15)
[2025-04-03] MEDS ORDERED: Dextrose 50% Abboject 50 ML SYRINGE SLOW IVP PRN (02:15)
[2025-04-03] MEDS ORDERED: Insulin Regular, Human 100 UNIT/ML 10 ML VIAL SC PRN ×2 (02:15)
[2025-04-03] MEDS ORDERED: Ondansetron ODT 4 MG TAB SL PRN (02:15)
[2025-04-03] MEDS ORDERED: Acetaminophen 650 MG Suppository PR PRN (02:15)
[2025-04-03] MEDS ORDERED: Glucagon 1 MG/ML KIT IM PRN (02:15)
[2025-04-03] MEDS: Flecainide 50 MG TAB PO SCH ×2 (02:23→08:39)
[2025-04-03] MEDS: Metoprolol Tartrate 100 MG TAB PO SCH ×2 (02:24→08:38)
[2025-04-03] MEDS: Apixaban 5 MG TAB PO SCH ×2 (02:24→08:39)
[2025-04-03 02:58] VITALS: BMI 39.3
[2025-04-03 04:24] LABS: #Basophils 0.04 10x3/uL (0.0-0.2); %Basophils 0.5 % (0.0-1.0); %Lymphocytes 25.6 % (21.0-51.0); %Monocytes 7.5 % (0.0-10.0); %Neutrophils 64.2 % (42.0-75.0); Hematocrit 34.1 % (36.0-47.0); Hemoglobin 10.3 g/dL (12.0-16.0); Mean Corpuscular HGB CONC 30.2 g/dL (32.0-36.0); Mean Corpuscular Hemoglobin 22.3 pg (27.0-31.0); Mean Corpuscular Volume 73.8 fL (78.0-98.0); Mean Platelet Volume 9.5 fL (7.4-10.4); Platelet Count 210 10x3/uL (130-400); RBC Distribution Width 17.2 % (11.5-14.5); Red Blood Cell (RBC) Count 4.62 mill/uL (4.20-5.40)
[2025-04-03 04:26] LABS: Anion Gap 15 mmol/L (10-20); BUN (Urea Nitrogen) 40 mg/dL (9.8-20.1); Calc. Creatinine Clearance 53 mL/min (70-130); Calcium 8.8 mg/dL (7.8-10.44); Carbon Dioxide 22 mmol/L (23-31); Chloride 106 mmol/L (98-107); Estimated GFR 37; Glucose 210 mg/dL (80-115); Potassium 4.3 mmol/L (3.5-5.1); Sodium 139 mmol/L (136-145)
[2025-04-03 04:30] LABS: Anion Gap 15 mmol/L (10-20); BUN (Urea Nitrogen) 40 mg/dL (9.8-20.1); Calc. Creatinine Clearance 52 mL/min (70-130); Calcium 8.7 mg/dL (7.8-10.44); Carbon Dioxide 20 mmol/L (23-31); Chloride 106 mmol/L (98-107); Estimated GFR 36; Glucose 209 mg/dL (80-115); Magnesium 1.9 mg/dL (1.6-2.6); Potassium 4.4 mmol/L (3.5-5.1); Sodium 137 mmol/L (136-145)
[2025-04-03 04:58] LABS: Free T4 (Free Thyroxine) 0.89 ng/dL (0.70-1.48)
[2025-04-03] MEDS: Levothyroxine 150 MCG TAB PO SCH (06:11)
[2025-04-03] MEDS: Losartan 25 MG TAB PO SCH (08:38)
[2025-04-03] MEDS: Guaifenesin DM 100-10/5 ML UDCUP PO PRN (08:38)
[2025-04-03] MEDS: Aspirin 81 mg Enteric Coated Tablet PO SCH (08:38)
[2025-04-03] MEDS: Amlodipine 5 MG TAB PO SCH (08:38)
[2025-04-03] MEDS: hydrALAZINE 25 MG TAB PO SCH (08:38)
[2025-04-03] MEDS: Gemfibrozil 600 MG TAB PO SCH (08:38)
[2025-04-03] MEDS: Pantoprazole 40 MG DR.TAB PO SCH (08:39)
[2025-04-03] MEDS: Sertraline 100 MG TAB PO SCH (08:39)
[2025-04-03] MEDS: Furosemide 40 MG TAB PO SCH (08:39)
[2025-04-03] MEDS: Famotidine 20 MG TAB PO SCH (08:39)
[2025-04-03] MEDS: Empagliflozin 10 MG TAB PO SCH (08:39)
[2025-04-03] MEDS: metFORMIN 500 MG TAB PO SCH (08:39)
[2025-04-03 19:05] LABS: Influenza A by NAA Not Detected (NotDetected); Influenza B by NAA Not Detected (NotDetected); RSV by NAA Not Detected (NotDetected); SARS-CoV-2 NAA Rapid Test Not Detected (NotDetected)
[2025-04-03] MEDS: Rosuvastatin 10 MG TAB PO SCH (21:07)
[2025-04-04 09:22] LABS: Chloride 106 mmol/L (98-107); Potassium 4.3 mmol/L (3.5-5.1); Sodium 140 mmol/L (136-145)
[2025-04-04 09:23] LABS: Calcium 9.2 mg/dL (7.8-10.44)
[2025-04-04 09:24] LABS: Glucose 80 mg/dL (80-115)
[2025-04-04 09:25] LABS: Anion Gap 18 mmol/L (10-20); Carbon Dioxide 20 mmol/L (23-31)
[2025-04-04 09:27] LABS: Calc. Creatinine Clearance 55 mL/min (70-130); Estimated GFR 38
[2025-04-04 09:28] LABS: BUN (Urea Nitrogen) 34 mg/dL (9.8-20.1)
[2025-04-04 09:29] LABS: Magnesium 1.9 mg/dL (1.6-2.6)
[2025-04-04] MEDS: Famotidine 20 MG TAB PO SCH (09:52)
[2025-04-04] MEDS: Acetaminophen 325 MG TAB PO PRN (09:55)
[2025-04-04] MEDS: Magnesium 2 GM/50 ML(in water) 2 GM in Premix 1 BAG IVPB SCH (14:45)
[2025-04-04] MEDS: Loperamide HCl 2 MG CAP PO PRN (15:56)
[2025-04-05 05:18] LABS: Anion Gap 15 mmol/L (10-20); BUN (Urea Nitrogen) 38 mg/dL (9.8-20.1); Calc. Creatinine Clearance 51 mL/min (70-130); Calcium 9.1 mg/dL (7.8-10.44); Carbon Dioxide 24 mmol/L (23-31); Chloride 105 mmol/L (98-107); Estimated GFR 35; Glucose 126 mg/dL (80-115); Magnesium 2.3 mg/dL (1.6-2.6); Potassium 4.1 mmol/L (3.5-5.1); Sodium 140 mmol/L (136-145)
[2025-04-05 11:50] VITALS: BP 148/68; TEMP 98.1
== END 2025-04-05 13:15 | disposition home or self-care (01) | DRG 309 ==
LOC: ERS 14:04 → 2NO 22:24 → OBSVTOIN 04-04 09:52
PROVIDERS: ADMIT Internal Medicine; ATTEND Family Medicine
DX: I48.4 Atypical atrial flutter (principal); N17.9 Acute kidney failure, unspecified; I47.19 Other supraventricular tachycardia; I49.9 Cardiac arrhythmia, unspecified; E03.9 Hypothyroidism, unspecified; E11.9 Type 2 diabetes mellitus without complications; E78.5 Hyperlipidemia, unspecified; I48.0 Paroxysmal atrial fibrillation; D64.9 Anemia, unspecified; I49.5 Sick sinus syndrome; I45.5 Other specified heart block; E66.9 Obesity, unspecified; J02.9 Acute pharyngitis, unspecified; R09.89 Other specified symptoms and signs involving the circulatory and respiratory systems; I11.0 Hypertensive heart disease with heart failure; Z98.890 Other specified postprocedural states; Z88.1 Allergy status to other antibiotic agents; Z88.8 Allergy status to other drugs, medicaments and biological substances; Z79.899 Other long term (current) drug therapy; Z79.890 Hormone replacement therapy; Z79.82 Long term (current) use of aspirin; Z79.84 Long term (current) use of oral hypoglycemic drugs; Z79.4 Long term (current) use of insulin; Z68.39 Body mass index [BMI] 39.0-39.9, adult
CPT/HCPCS: 0241U; 36415; 36416; 70450; 71045; 80048; 80053; 83735; 83880; 84439; 84443; 84481; 84484; 85025; 93005; 94760; 96374; 96375; G0378; J3475

== ENCOUNTER 2025-07-12 07:50 | Day surgery (SDC) | payer MEDICARE ==
[2025-07-09 10:52] VITALS: BMI 38.4
[2025-07-12] MEDS ORDERED: PROPOFOL 40 ML ONE (09:37)
== END 2025-07-12 12:10 | disposition home or self-care (01) ==
LOC: SDC 07:50
PROVIDERS: ATTEND Internal Medicine Gastroenterology
PROC: 0DB98ZX Excision of Duodenum, Via Natural or Artificial Opening Endoscopic, Diagnostic (ICD-10-PCS; principal; 2025-07-12)
PROC: 0DBK8ZZ Excision of Ascending Colon, Via Natural or Artificial Opening Endoscopic (ICD-10-PCS; 2025-07-12)
PROC: 0DB38ZX Excision of Lower Esophagus, Via Natural or Artificial Opening Endoscopic, Diagnostic (ICD-10-PCS; 2025-07-12)
DX: D12.2 Benign neoplasm of ascending colon (principal); K44.9 Diaphragmatic hernia without obstruction or gangrene; K22.70 Barrett's esophagus without dysplasia; K21.9 Gastro-esophageal reflux disease without esophagitis; D50.9 Iron deficiency anemia, unspecified; I48.20 Chronic atrial fibrillation, unspecified; I49.5 Sick sinus syndrome; I10 Essential (primary) hypertension; E11.9 Type 2 diabetes mellitus without complications; F32.A Depression, unspecified; F41.9 Anxiety disorder, unspecified; Z87.59 Personal history of other complications of pregnancy, childbirth and the puerperium; Z90.710 Acquired absence of both cervix and uterus; Z88.0 Allergy status to penicillin; Z79.84 Long term (current) use of oral hypoglycemic drugs; Z79.85 Long-term (current) use of injectable non-insulin antidiabetic drugs; Z79.01 Long term (current) use of anticoagulants; Z79.899 Other long term (current) drug therapy
CPT/HCPCS: 43239; 45385; J2704; 88305